=== PATIENT | male | born 1965 | race Two or more races ===

== ENCOUNTER 2017-07-11 17:48 | Emergency (ER) | payer MEDICAID ==
[~2017-07-11] VITALS: Ht 177.8 cm; Wt 136.1 kg
[2017-07-11 18:02] VITALS: BP 132/83
[2017-07-11] MEDS ORDERED: BACLOFEN 10 MG TAB PO ONE (21:15)
[2017-07-11] MEDS ORDERED: IBUPROFEN 600 MG TAB PO ONE (21:15)
[2017-07-11] MEDS: IBUPROFEN 600 MG TAB PO ONE ×2 (21:23→21:25)
[2017-07-11] MEDS: BACLOFEN 10 MG TAB ONE ×2 (21:24→21:25)
== END 2017-07-11 21:43 | disposition home or self-care (01) ==
LOC: ER 17:51
DX: S63.501A Unspecified sprain of right wrist, initial encounter (principal); S50.01XA Contusion of right elbow, initial encounter; Z88.5 Allergy status to narcotic agent; V49.49XA Driver injured in collision with other motor vehicles in traffic accident, initial encounter; Y93.89 Activity, other specified; Y92.410 Unspecified street and highway as the place of occurrence of the external cause; Y99.8 Other external cause status
CPT/HCPCS: 29125; 73080; 73110